=== PATIENT | male | born 1970 | race Caucasian/White ===

== ENCOUNTER 2017-07-29 17:32 | Emergency (ER) | payer BC ==
[~2017-07-29] VITALS: Ht 177.8 cm; Wt 98.6 kg
[2017-07-29] MEDS ORDERED: proCHLORperazine 10mg tablet PO ONE (18:05)
[2017-07-29] MEDS ORDERED: acetaminophen 325mg tablet PO ONE (18:05)
[2017-07-29] MEDS ORDERED: ketorolac trometh inj. 60 MG/2 ML VIAL IM ONE (18:05)
[2017-07-29] MEDS ORDERED: aspirin 325mg tablet PO ONE (18:05)
[2017-07-29] MEDS ORDERED: meclizine 12.5mg tablet PO ONE (18:05)
[2017-07-29] MEDS ORDERED: MECL-111 PO (18:50)
[2017-07-29 19:05] VITALS: BP 143/87
== END 2017-07-29 19:17 | disposition home or self-care (01) ==
LOC: ER 17:33
DX: R51 Headache (principal); R42 Dizziness and giddiness; G89.29 Other chronic pain; Z88.0 Allergy status to penicillin
CPT/HCPCS: 70450; 96372; 99284; J1885; J8597; Q0164

== ENCOUNTER → 2017-11-20 | Emergency (ER) | payer BC ==
[~2017-11-20] VITALS: Ht 182.9 cm; Wt 102.0 kg
[~2017-11-20] MED LIST: LORazepam 2 mg/ml vial IV ONE; MECL-111 PO; SUMAtriptan succ. 6 MG/0.5ml vial SQ ONE; dexamethasone sod phosphate 10mg/ml inj IM STA; ketorolac trometh. 30mg/ml inj. IV ONE; metoclopramide 5 mg/ml inj IV ONE; normal saline 1000ML IV soln IVB ONE
[2017-11-20 11:40] VITALS: BP 125/83
== END | disposition home or self-care (01) ==
LOC: ER 10:15
DX: G44.009 Cluster headache syndrome, unspecified, not intractable (principal); G89.29 Other chronic pain; Z88.0 Allergy status to penicillin; Z79.899 Other long term (current) drug therapy
CPT/HCPCS: 70450; 96372; 96374; 96375; 99284; J1100; J1885; J2060; J2765; J3030; J7030; A4620

== ENCOUNTER 2019-01-05 15:25 | Outpatient (CLI) | payer MEDICAID ==
[~2019-01-05 15:25] MED LIST changes: -LORazepam 2 mg/ml vial IV ONE; -SUMAtriptan succ. 6 MG/0.5ml vial SQ ONE; -dexamethasone sod phosphate 10mg/ml inj IM STA; -ketorolac trometh. 30mg/ml inj. IV ONE; -metoclopramide 5 mg/ml inj IV ONE; -normal saline 1000ML IV soln IVB ONE
== END 2019-01-05 23:59 | disposition home or self-care (01) ==
LOC: CARD DIAG 15:25
PROVIDERS: ATTEND Orthopaedic Surgery
DX: R55 Syncope and collapse (principal)
CPT/HCPCS: 93306

== ENCOUNTER 2019-07-20 08:38 | Outpatient (CLI) | payer MEDICAID ==
[~2019-07-20 08:38] MED LIST changes: -MECL-111 PO; +MECL-159 PO
== END 2019-07-20 23:59 | disposition home or self-care (01) ==
LOC: RAD 08:38
DX: R56.9 Unspecified convulsions (principal)
CPT/HCPCS: 95819

== ENCOUNTER 2021-12-29 19:22 | Emergency (ER) | payer MEDICARE, MEDICAID ==
[~2021-12-29] VITALS: Ht 182.9 cm; Wt 100.0 kg
[2021-12-29 19:28] VITALS: BP 119/81
== END 2021-12-29 22:39 ==
LOC: ER 19:22
DX: G40.909 Epilepsy, unspecified, not intractable, without status epilepticus (principal); Z88.0 Allergy status to penicillin; G89.29 Other chronic pain; M54.50 Low back pain, unspecified
CPT/HCPCS: 99283